=== PATIENT | male | born 1995 | race African-American/Black ===

== ENCOUNTER 2017-06-02 09:27 | Emergency (ER) | payer OTHER ==
[~2017-06-02] VITALS: Ht 170.2 cm; Wt 68.0 kg
--- NOTE | 2017-06-02 09:45 | NUR ---
Patient to OF#3 at this time.
[2017-06-02 09:46] VITALS: BP 121/74
--- NOTE | 2017-06-02 09:53 | NUR ---
PATIENT SEEN IN ER LAST SAT. AND ADVISED TO RETURN TODAY FOR WOUND CHECK.DENIES HX: TAKING UNK. ANTIBIOTIC PRESCRIPTION FROM FRIDAY . WOUND IN GOOD WOUND HEALING PROCESS.NO INFLAMMATION /EXUDATES NOTED;PT DENIES FEVER; DENIES N/V/D; SKIN IS PINK/WARM/DRY; AAOX4 WITH EVEN AND STEADY GAIT; LUNGS CLEAR BL; HR EVEN AND REGULAR; PT DENIES ANY FEVER, CP, SOB, OR COUGH AT THIS TIME; PATIENT STATES PAIN OF 0/10 AT THIS TIME; PATIENT POSITIONED FOR COMFORT; ER MD MADE AWARE OF PT STATUS.
--- NOTE | 2017-06-02 10:14 | NUR ---
PT TRANSFERED TO BED 2.
[2017-06-02] MEDS ORDERED: LIDOCAINE MPF 1% 50 MG/5 ML VIAL ONE (10:22)
[2017-06-02] MEDS ORDERED: LIDOCAINE/EPI 2% 1:100000 20 ML VIAL INJ ONE (10:25)
[2017-06-02] MEDS ORDERED: BACITRACIN OINT 500 UNITS/GM PKT TP ONE (10:48)
[2017-06-02 11:00] VITALS: BP 129/69
--- NOTE | 2017-06-02 11:00 | NUR ---
Patient discharged with v/s stable. Written and verbal after care instructions given and explained. Patient verbalized understanding. Ambulatory with steady gait. All questions addressed prior to discharge. Advised to follow up with PMD.
== END 2017-06-02 11:00 | disposition home or self-care (01) ==
LOC: MED 09:27
DX: S81.811A Laceration without foreign body, right lower leg, initial encounter (principal); J45.909 Unspecified asthma, uncomplicated; Z88.0 Allergy status to penicillin; X58.XXXA Exposure to other specified factors, initial encounter; Y93.89 Activity, other specified; Y92.89 Other specified places as the place of occurrence of the external cause; Y99.8 Other external cause status
CPT/HCPCS: 12001; 99283; J2001

== ENCOUNTER 2017-06-09 12:35 | Emergency (ER) | payer OTHER ==
[~2017-06-09] VITALS: Ht 170.2 cm; Wt 75.0 kg
[2017-06-09 12:40] VITALS: BP 112/74
[2017-06-09 13:00] VITALS: BP 112/74
--- NOTE | 2017-06-09 13:01 | NUR ---
21 YO MALE BIB SELF FOR SUTURE REMOVAL ON RIGHT LEG. AWAKE AND ALERT ABLE TO AMBULATE NO BLEEDING SWELLING OR DRAINAGE WOUND IS CLEAN AND DRY. TO VOERFLOW 3 FOR SUTURE REMOVAl.
--- NOTE | 2017-06-09 13:02 | NUR ---
sutures removed and wound steri striped for safety
--- NOTE | 2017-06-09 13:03 | NUR ---
Patient discharged with v/s stable. Written and verbal after care instructions given and explained to parent/guardian. Parent/Guardian verbalized understanding. Ambulatorysteady gait. All questions addressed prior to discharge. Advised to follow up with PMD.
== END 2017-06-09 13:03 | disposition home or self-care (01) ==
LOC: MED 12:35
DX: S81.811D Laceration without foreign body, right lower leg, subsequent encounter (principal); X58.XXXD Exposure to other specified factors, subsequent encounter; J45.909 Unspecified asthma, uncomplicated; Z88.0 Allergy status to penicillin
CPT/HCPCS: 99281